=== PATIENT | female | born 1985 | race Caucasian/White ===

== ENCOUNTER 2016-12-05 14:42 | Emergency (ER) | payer MEDICAID ==
--- NOTE | 2016-12-05 16:19 | ER Document Report ---
HPI - HPI Patient complains to provider of: sore throat cough ear pain chest pain Onset: Other - 6 days Onset/Duration: Persistent Quality of pain: Achy Severity: Moderate Pain Level: 3 Context: Patient presents emergency department with complaints of coughing sore throat ear pain chest pain. She reports symptoms started with a sore throat last week. She reports she felt like she couldn't even swallow Monday last week. During her ear started hurting and she started with a productive cough. She reports reducing green sputum. Denies fever vomiting diarrhea. Reports history of asthma. Patient is talking in clear sentences no shortness of breath EKG notes sinus rhythm patient reports chest hurts when she coughs. Associated Symptoms: Chest pain, Productive cough, Earache, Sore throat Exacerbated by: Coughing, Deep breathing Relieved by: Denies Similar symptoms previously: No Recently seen / treated by doctor: No - REPRODUCTIVE Reproductive: DENIES: : - DERM Skin Color: Normal Past Medical History - General Information source: Patient Last Menstrual Period: November 20 - Social History Smoking Status: Current Every Day Smoker Cigarette use (# per day): Yes Chew tobacco use (# tins/day): No Frequency of alcohol use: None Drug Abuse: None Occupation: [employer] Family History: Reviewed & Not Pertinent Patient has suicidal ideation: No Patient has homicidal ideation: No Pulmonary Medical History: Reports: Hx Asthma Renal/ Medical History: Reports: Hx Ovarian Cysts. Denies: Hx Peritoneal Dialysis Psychiatric Medical History: Reports: Hx Attention Deficit Hyperactivity Disorder, Hx Post Traumatic Stress Disorder Surgical Hx: Negative Past Surgical History: Reports: Hx Inguinal Hernia - child - Immunizations Hx Diphtheria, Pertussis, Tetanus Vaccination: Yes Vertical Provider Document - CONSTITUTIONAL Agree With Documented VS: Yes Exam Limitations: No Limitations General Appearance: WD/WN, No Apparent Distress - INFECTION CONTROL TRAVEL OUTSIDE OF THE [place] IN LAST 30 DAYS: No - HEENT HEENT: Atraumatic, Normocephalic, Pharyngeal Erythema, Tympanic Membrane Red - left. negative: Conjuctival Injection, Pharyngeal Exudate, Pharyngeal Tenderness, Tympanic Membrane Bulging - NECK Neck: Normal Inspection, Supple. negative: Lymphadenopathy-Left, Lymphadenopathy-Right - RESPIRATORY Respiratory: Breath Sounds Normal, No Respiratory Distress O2 Sat by Pulse Oximetry: 100 - CARDIOVASCULAR Cardiovascular: Regular Rate, Regular Rhythm - GI/ABDOMEN Gastrointestinal: Abdomen Soft, Abdomen Non-Tender - MUSCULOSKELETAL/EXTREMETIES Musculoskeletal/Extremeties: MARYELLEN NICHOLE - NEURO Level of Consciousness: Awake, Alert, Appropriate Motor/Sensory: No Motor Deficit - DERM Integumentary: Warm, Dry, No Rash Course - Re-evaluation Re-evalutation: 12/05/16 16:18 Patient instructed on pending chest x-ray and strep. 12/05/16 17:02 Patient instructed on negative x-ray left otitis media amoxicillin. She was instructed to follow up with primary care provider for recheck within 1 week. She verbalized understanding to all instructions. - Vital Signs Vital signs: Temp Pulse Resp BP Pulse Ox 98.4 F 71 16 118/78 100 12/05/16 15:16 12/05/16 15:16 12/05/16 15:16 12/05/16 15:16 12/05/16 15:16 - Diagnostic Test Radiology reviewed: Image reviewed, Reports reviewed - Diagnostic report text EXAM DESCRIPTION: CHEST PA/LAT COMPLETED DATE/TIME: 12/05/2016 4:42 pm REASON FOR STUDY: cough COMPARISON: 05/13/2010 TECHNIQUE: Frontal and lateral radiographic views of the chest acquired. NUMBER OF VIEWS: Two view. LIMITATIONS: None. FINDINGS: LUNGS AND PLEURA: No opacities, masses or pneumothorax. No pleural effusion. MEDIASTINUM AND HILAR STRUCTURES: No masses or contour abnormalities. HEART AND VASCULAR STRUCTURES: Heart normal size. No evidence for failure. BONES: No acute findings. HARDWARE: None in the chest. OTHER: No other significant finding. TECHNICAL DOCUMENTATION: JOB ID: [id number] [employer]- All Rights Reserved [id number] RAD/CHEST PA/LAT IMPRESSION: NO SIGNIFICANT RADIOGRAPHIC FINDING IN THE CHEST Discharge - Discharge Clinical Impression: Sore throat, Cough Ear pain Qualifiers: Laterality: bilateral Qualified Code(s): H92.03 - Otalgia, bilateral Otitis media Qualifiers: Otitis media type: unspecified Laterality: left Condition: Stable Disposition: HOME, SELF-CARE Instructions: Sore Throat ([facility]), Otitis Media ([facility]), Amoxicillin ([facility]) Additional Instructions: *You have been evaluated for cough, ear pain, otitis media, sore throat *A throat culture is pending, you will be contacted should you need a different antibiotic *Increase fluid intake *Warm salt water gargles and throat lozenges for comfort *Take over the counter cough medicine as indicated *Take medication as prescribed *Monitor your temperature, take Tylenol as indicated *Follow up with a primary care provider within one week for recheck *Return to ED for worsening condition, changes, needs Prescriptions: Amoxicillin Trihydrate [Amoxil 500 mg Capsule] 500 mg PO TID #30 capsule
[2016-12-05 17:43] VITALS: BP 113/67
--- NOTE | 2016-12-05 19:00 | EKG REPORT ---
SEVERITY:- OTHERWISE NORMAL ECG - SINUS RHYTHM ATRIAL PREMATURE COMPLEX : Confirmed by: Navin Khan 05-Dec-2016 18:59:40
== END 2016-12-05 17:41 | disposition home or self-care (01) ==
LOC: ER 14:42
DX: J02.9 Acute pharyngitis, unspecified (principal); H66.92 Otitis media, unspecified, left ear; R05 Cough; H92.03 Otalgia, bilateral; R07.9 Chest pain, unspecified; F17.210 Nicotine dependence, cigarettes, uncomplicated
CPT/HCPCS: 71020; 87070; 87880; 93005; 93010; 99284

== ENCOUNTER 2017-05-14 15:25 | Emergency (ER) | payer MEDICAID ==
[2017-05-14 15:30] VITALS: BP 115/67
[2017-05-14] MEDS ORDERED: HYDROCODONE/ACETAMINOPHEN 5-325 MG TABLET PO ONE (15:34)
[2017-05-14] MEDS ORDERED: LIDOCAINE 1% INJ-PF (10 MG/ML) 30 ML SDV INJ ONE (15:34)
[2017-05-14] MEDS ORDERED: DIPH/PERTUSS(ACELL)/TETANUS VAC/PF 0.5 ML SYR (>=10YO) IM ONE (15:37)
--- NOTE | 2017-05-14 15:42 | ER Document Report ---
ED General - General Chief Complaint: Dog Bite Stated Complaint: DOG BITE/RIGHT HAND Time Seen by Provider: 05/14/17 15:29 Mode of Arrival: Ambulatory Information source: Patient Notes: 32 yr old female presents with complaints of dog bite to the right hand by her own dog . Pt denies any diffiuclty moving her fingers. denies nay weakness. unsure of last tetanus approximately 8-9 yrs ago. TRAVEL OUTSIDE OF THE [place] IN LAST 30 DAYS: No - HPI Onset: Just prior to arrival Onset/Duration: Sudden Quality of pain: Achy Severity: Mild Pain Level: 1 Associated symptoms: None Exacerbated by: Movement Relieved by: Denies Similar symptoms previously: No Recently seen / treated by doctor: No - Related Data Allergies/Adverse Reactions: codeine [Codeine] Allergy (Mild, Verified 05/14/17 15:28) Past Medical History - Social History Smoking Status: Never Smoker Cigarette use (# per day): No Chew tobacco use (# tins/day): No Smoking Education Provided: No Family History: Reviewed & Not Pertinent Pulmonary Medical History: Reports: Hx Asthma Renal/ Medical History: Reports: Hx Ovarian Cysts. Denies: Hx Peritoneal Dialysis Psychiatric Medical History: Reports: Hx Attention Deficit Hyperactivity Disorder, Hx Post Traumatic Stress Disorder Past Surgical History: Reports: Hx Inguinal Hernia - child - Immunizations Hx Diphtheria, Pertussis, Tetanus Vaccination: Yes Review of Systems - Review of Systems Notes: REVIEW OF SYSTEMS: CONSTITUTIONAL : Denies fever, chills, or sweats. Denies recent illness. EENT: Denies eye, ear, throat, or mouth pain or symptoms. Denies nasal or sinus congestion or discharge. Denies throat, tongue, or mouth swelling or difficulty swallowing. CARDIOVASCULAR: Denies chest pain. Denies palpitations or racing or irregular heart beat. Denies ankle edema. RESPIRATORY: Denies cough, cold, or chest congestion. Denies shortness of breath, difficulty breathing, or wheezing. GASTROINTESTINAL: Denies abdominal pain or distention. Denies nausea, vomiting , or diarrhea. Denies blood in vomitus, stools, or per rectum. Denies black, tarry stools. Denies constipation. GENITOURINARY: Denies difficulty urinating, painful urination, burning, frequency, blood in urine, or discharge. FEMALE GENITOURINARY: Denies vaginal bleeding, heavy or abnormal periods, irregular periods. Denies vaginal discharge or odor. MUSCULOSKELETAL: Denies back or neck pain or stiffness. Denies joint pain or swelling. SKIN: laceration hand HEMATOLOGIC : Denies easy bruising or bleeding. LYMPHATIC: Denies swollen, enlarged glands. NEUROLOGICAL: Denies confusion or altered mental status. Denies passing out or loss of consciousness. Denies dizziness or lightheadedness. Denies headache. Denies weakness or paralysis or loss of use of either side. Denies problems with gait or speech. Denies sensory loss, numbness, or tingling. Denies seizures. PSYCHIATRIC: Denies anxiety or stress. Denies depression, suicidal ideation, or homicidal ideation. ALL OTHER SYSTEMS REVIEWED AND NEGATIVE. PHYSICAL EXAMINATION: GENERAL: Well-appearing, well-nourished and in no acute distress. HEAD: Atraumatic, normocephalic. EYES: Pupils equal round and reactive to light, extraocular movements intact, conjunctiva are normal. ENT: Nares patent, oropharynx clear without exudates. Moist mucous membranes. NECK: Normal range of motion, supple without lymphadenopathy LUNGS: Breath sounds clear to auscultation bilaterally and equal. No wheezes rales or rhonchi. HEART: Regular rate and rhythm without murmurs ABDOMEN: Soft, nontender, nondistended abdomen. No guarding, no rebound. No masses appreciated. Female : deferred Musculoskeletal: Normal range of motion, no pitting or edema. No cyanosis. NEUROLOGICAL: Cranial nerves grossly intact. Normal speech, normal gait. Normal sensory, motor exams, full sensation and motor function PSYCH: Normal mood, normal affect. SKIN: puncture wound to the palmar aspect of the mid hand , laceration of dorsal aspect measuring 5 cm , no ligmanetous orvessel involvement Dictation was performed using [employer] voice recognition software Physical Exam - Vital signs Vitals: Temp Pulse Resp BP Pulse Ox 97.8 F 56 L 20 115/67 100 05/14/17 15:29 05/14/17 15:29 05/14/17 15:29 05/14/17 15:29 05/14/17 15:29 Course - Re-evaluation Re-evalutation: 05/14/17 15:42 area was anesthesices and cleansed, no sign of ligamentous injury. - Vital Signs Vital signs: Temp Pulse Resp BP Pulse Ox 97.8 F 56 L 20 115/67 100 05/14/17 15:29 05/14/17 15:29 05/14/17 15:29 05/14/17 15:29 05/14/17 15:29 Procedures - Laceration/Wound Repair Right Wrist Time completed: 15:55 Wound length (cm): 5 Wound's Depth, Shape: Superficial, Linear, Irregular, Flap Laceration pre-procedure: Sterile PPE donned, Betadine prep applied, Sterile drapes applied Anesthetic type: 1% Lidocaine Volume Anesthetic (mLs): 10 Wound explored: No foreign body removed, Contaminated Irrigated w/ Saline (mLs): 500 Wound Debrided: Minimal Wound Repaired With: Sutures Suture Size/Type: 4:0, Ethilon Number of Sutures: 3 Layer Closure?: No Post-procedure wound care: Sterile dressing applied Post-procedure NV exam normal: Yes Complications: No Discharge - Discharge Clinical Impression: Dog bite Qualifiers: Encounter type: initial encounter Qualified Code(s): W54.0XXA - Bitten by dog, initial encounter Condition: Stable Disposition: HOME, SELF-CARE Instructions: Animal Bites ([facility]) Additional Instructions: Follow-up in 10-14 days for removal of suture or immediately if there is any sign of infection Prescriptions: Amox Tr/Potassium Clavulanate [Augmentin 875-125 Tablet] 1 tab PO BID 10 Days tablet Hydrocodone/Acetaminophen [[place]on 5-325 mg Tablet] 1 tab PO Q6 #8 tablet
--- NOTE | 2017-05-14 16:10 | RADIOLOGY REPORT (SQ) ---
EXAM DESCRIPTION: FOREARM RIGHT COMPLETED DATE/TIME: 05/14/2017 4:01 pm REASON FOR STUDY: dog bite hand COMPARISON: None. NUMBER OF VIEWS: Two views. TECHNIQUE: Two radiographic images acquired of the right forearm, including elbow and wrist in at le ast one projection. LIMITATIONS: None. FINDINGS: MINERALIZATION: Normal. BONES: No acute fracture. No worrisome bone lesions. SOFT TISSUES: No obvious swelling or foreign body. OTHER: No other significant finding. IMPRESSION: NEGATIVE STUDY OF THE RIGHT FOREARM. NO RADIOGRAPHIC EVIDENCE OF ACUTE INJURY. TECHNICAL DOCUMENTATION: JOB ID: [id number] [employer]- All Rights Reserved
== END 2017-05-14 16:16 | disposition home or self-care (01) ==
LOC: ER 15:25
PROC: 0HQDXZZ Repair Right Lower Arm Skin, External Approach (ICD-10-PCS; principal; 2017-05-14)
DX: S61.451A Open bite of right hand, initial encounter (principal); S61.551A Open bite of right wrist, initial encounter; W54.0XXA Bitten by dog, initial encounter; Z23 Encounter for immunization
CPT/HCPCS: 12002; 99283; 90471; 73090; 90715; J3490